=== PATIENT | female | born 1960 | race Caucasian/White ===

== ENCOUNTER 2016-08-23 12:40 | Emergency (ER) | payer OTHER ==
[~2016-08-23] VITALS: Ht 167.6 cm; Wt 77.8 kg
[2016-08-23 12:49] VITALS: Ht 167.6 cm; Wt 77.8 kg
[2016-08-23 16:27] LABS: URINE BLOOD (Dip) POC 2+ (NEGATIVE)
[2016-08-23 16:41] LABS: ADD SCAN DIFF NO
[2016-08-23 16:43] LABS: BASOPHILS % 0.7 % (0.0-2.0); EOSINOPHILS # 0.1 10^3/ul (0.0-0.5); EOSINOPHILS % 1.2 % (0.0-7.0); HEMOGLOBIN 13.4 g/dl (12.0-16.0); LYMPHOCYTES % 33.6 % (15.0-51.0); MEAN CORPUSCULAR HEMOGLOBIN 25.8 pg (29.0-33.0); MEAN CORPUSCULAR HGB CONC 31.9 g/dl (32.0-37.0); MEAN CORPUSCULAR VOLUME 80.8 fl (82.0-101.0); MEAN PLATELET VOLUME 10.5 fl (7.4-10.4); MONOCYTE # 0.5 10^3/ul (0.3-0.9); MONOCYTES % 8.7 % (0.0-11.0); NEUTROPHIL # 3.3 10^3/ul (1.6-7.5); NEUTROPHILS % 55.6 % (39.0-77.0); PLATELET COUNT 335 10^3/UL (140-415); RED CELL DISTRIBUTION WIDTH 14.9 % (11.5-14.5)
[2016-08-23 16:52] LABS: ALBUMIN 4.3 g/dl (3.3-4.9); POTASSIUM 4.3 mmol/L (3.5-5.1)
[2016-08-23 16:54] LABS: BILIRUBIN,INDIRECT 0.6 mg/dl (0-1.1); BILIRUBIN,TOTAL 0.6 mg/dl (0.2-1.3); CREATININE 0.74 mg/dl (0.44-1.00)
[2016-08-23 16:55] LABS: ALBUMIN/GLOBULIN RATIO 0.87; CALCIUM 9.7 mg/dl (8.4-10.2); TOTAL PROTEIN 9.2 g/dl (6.1-8.1)
[2016-08-23 16:55] LABS: ADD UMIC YES; URINE BILIRUBIN (Dip) NEGATIVE (NEGATIVE); URINE BLOOD (Dip) 3+ (NEGATIVE); URINE COLOR LT. YELLOW (YELLOW); URINE GLUCOSE (Dip) NEGATIVE (NEGATIVE); URINE KETONES (Dip) NEGATIVE (NEGATIVE); URINE LEUKOCYTE ESTERASE (Dip) NEGATIVE (NEGATIVE); URINE NITRITE (Dip) NEGATIVE (NEGATIVE); URINE TOTAL PROTEIN (Dip) NEGATIVE (NEGATIVE); URINE UROBILINOGEN (Dip) 0.2 E.U./dL (0.1-1.0)
[2016-08-23 17:13] LABS: BACTERIA,URINE FEW; SQUAMOUS EPITHELIAL CELL,UR MODERATE; URINE RBCS 25-50 /HPF (0)
--- NOTE | 2016-08-23 17:43 | RADRPT ---
PROCEDURE: US Pelvis. CLINICAL INDICATION: Pelvic pain and vaginal bleeding TECHNIQUE: Multiple sonographic images of the pelvis were obtained utilizing a transabdominal and endovaginal technique. The images were reviewed on a PACS workstation. COMPARISON: None. FINDINGS: The uterus is visualized and measures 8.5 x 5.9 cm in size. The uterus is heterogeneous in echogenic ity. The endometrial echo complex is normal and measures 4.2 mm. There is a trace amount of free flu id. The right ovary is not well visualized. The left ovary has a normal echotexture and measures 2. 1 x 1.3 x 1.2 cm. No adnexal masses are noted. IMPRESSION: 1. Heterogeneous uterus. 2. Trace amount of free fluid in the pelvis. RPTAT: HPNM Physician Cherie Date Time Electronically viewed and signed by Physician Cherie on 08/23/2016 17:43 /
[2016-08-23] MEDS ORDERED: NAPR-688 PO (18:23)
--- NOTE | 2016-08-23 19:04 | ERD ---
ER Documentation Chief Complaint Date/Time DATE: 08/23/16 TIME: 19:00 Chief Complaint CAME IN VIA INTAKE DUE TO VAGINAL BLEEDING AND LOWER ABDOMINAL PAIN HPI This is a 56-year-old female who is perimenopausal presenting to the emergency department complaining of pelvic pain and vaginal bleeding for the past week. Patient states that she soils around 3 pads per day. Patient states that she has been seen by her doctor, who has referred her here for further evaluation management. Patient rates the pelvic pain around moderate to severe in severity. She denies any dysuria, fevers, nausea, vomiting, diarrhea. Patient has not taken any medications for this. ROS All systems reviewed and are negative except as per history of present illness. Medications Home Meds Active Scripts Naproxen* (Naproxen*) 500 Mg Tablet, 500 MG PO BID Y for PAIN AND OR ELEVATED TEMP, #30 TAB Prov:ABHISHEK POLANCO PA-C 08/23/16 PMhx/Soc History of Surgery: Yes (BACK SX, RIGHT KNEE SX) Anesthesia Reaction: No Hx Neurological Disorder: No Hx Respiratory Disorders: No Hx Cardiac Disorders: No Hx Psychiatric Problems: Yes (ANXIETY) Hx Miscellaneous Medical Probl: No Hx Alcohol Use: No Hx Substance Use: No Hx Tobacco Use: No Smoking Status: Never smoker Physical Exam Vitals Vital Signs Date Time Temp Pulse Resp B/P Pulse Ox O2 Delivery O2 Flow Rate FiO2 08/23/16 12:49 99.1 95 18 156/74 94 Physical Exam General: well-developed/well-nourished, in no apparent distress, non-toxic appearing HENT: NC/AT, bilateral tympanic membrane is normal with good cone of light, nares patent, oropharynx clear without exudates Eyes: Conjunctiva normal, PERRLA, EOMI Neck: Supple, no lymphadenopathy Pulm: CTA bilaterally, no rales, rhonchi, or wheezing heard CV: Normal S1S2 GI: Soft, non-distended, normal bowel sounds, tender to palpation in pelvic region, negative rosvings, negative menon's Back: No midline tenderness, no masses, No CVAT Ext: No clubbing, cyanosis, or edema Neuro: Alert and Orientated, gait normal Skin: Intact, normal turgor Psych: Normal mood and mentation Result Diagram: 08/23/16 1635 08/23/16 1635 Results 24 hrs Laboratory Tests Test 08/23/16 16:20 08/23/16 16:30 08/23/16 16:35 Urine Bacteria FEW Urine Bilirubin NEGATIVE Urine Clarity HAZY Urine Color LT. YELLOW Urine Glucose NEGATIVE% Urine Hemoglobin 3+ Urine Ketones NEGATIVE Urine Leukocyte Esterase NEGATIVE Urine Microscopic RBC 25-50/HPF Urine Microscopic WBC NONE SEEN/HPF Urine Nitrite NEGATIVE Urine Specific [place] <=1.005 Urine Squamous Epithelial Cells MODERATE Urine Total Protein NEGATIVE Urine Urobilinogen 0.2 E.U./dL Urine pH 6.0 Bedside Urine Blood 2+ Bedside Urine Glucose (UA) Negative Bedside Urine Ketones (LAB) Negative Bedside Urine Leukocyte Esterase (L Negative Bedside Urine Nitrite (LAB) Negative Bedside Urine Protein (LAB) Negative Bedside Urine pH (LAB) 6.0 Alanine Aminotransferase (ALT/SGPT) 44IU/L Albumin 4.3g/dl Albumin/Globulin Ratio 0.87 Alkaline Phosphatase 74IU/L Anion Gap 15 Aspartate Amino Transf (AST/SGOT) 39IU/L Basophils # 0.010^3/ul Basophils % 0.7% Blood Urea Nitrogen 14mg/dl Calcium Level 9.7mg/dl Carbon Dioxide Level 32mmol/L Chloride Level 101mmol/L Creatinine 0.74mg/dl Direct Bilirubin 0.00mg/dl Eosinophils # 0.110^3/ul Eosinophils % 1.2% Globulin 4.90g/dl Glucose Level 99mg/dl Hematocrit 42.0% Hemoglobin 13.4g/dl Indirect Bilirubin 0.6mg/dl Lymphocytes # 2.010^3/ul Lymphocytes % 33.6% Mean Corpuscular Hemoglobin 25.8pg Mean Corpuscular Hemoglobin Concent 31.9g/dl Mean Corpuscular Volume 80.8fl Mean Platelet Volume 10.5fl Monocytes # 0.510^3/ul Monocytes % 8.7% Neutrophils # 3.310^3/ul Neutrophils % 55.6% Nucleated Red Blood Cells # 0.010^3/ul Nucleated Red Blood Cells % 0.0/100WBC Platelet Count 03891^3/UL Potassium Level 4.3mmol/L Red Blood Count 5.2010^6/ul Red Cell Distribution Width 14.9% Sodium Level 144mmol/L Total Bilirubin 0.6mg/dl Total Protein 9.2g/dl White Blood Count 6.010^3/ul Procedures/MDM This is a 56-year-old female presenting to the emergency department complaining of pelvic pain and vaginal bleeding for the past week who was referred by her PCP for further evaluation management. My differentials include but not limited to uterine bleeding dysfunction, adenomyosis, fibroids, and other causes. Blood work was drawn. CBC did not show any significant anemia or leukocytosis. A pelvic ultrasound was done in the ED which is more likely due to heterogenous uterus which can be due to fibroids or adenomyosis. There was no evidence of ovarian torsion, hemorrhagic cyst or other masses. Urinalysis was done in the ED did not show any evidence of urinary tract infection. I patient is very stable and suitable for discharge to follow-up with back with her PCP. I discussed return to the emergency room for any worsening signs or symptoms. Patient understands and agrees with this plan Departure Diagnosis: Primary Impression: Excessive vaginal bleeding Condition: Stable Patient Instructions: Menorrhagia Referrals: [facility] (PCP) Additional Instructions: Visite a jefferson shayan domínguez para un EXAMEN.Regrese a estas instalaciones si no se mejora lottie esperbamos o lottie le dijimos. Regrese a estas instalaciones si no se mejora lottie esperbamos o lottie le dijimos. [place] toda la medicina nasrin y lottie se le indic. ABHISHEK POLANCO PA-C Aug 23, 2016 19:04
== END 2016-08-23 18:40 | disposition home or self-care (01) ==
LOC: FTE 12:40
DX: N93.9 Abnormal uterine and vaginal bleeding, unspecified (principal)
CPT/HCPCS: 76830; 76856; 80053; 81001; 81003; 85025; 86850; 86900; 86901; Z7502